=== PATIENT | female | born 1935 | race Caucasian/White ===

== ENCOUNTER → 2025-03-23 13:39 | Outpatient (REF) | payer OTHER, SELFPAY | LOC: HWRAD 13:39 | PROVIDERS: ATTENDING PHYSICIAN Internal Medicine | DX: R06.02 Shortness of breath (principal) | CPT/HCPCS: 71046 ==

== ENCOUNTER → 2025-06-16 09:39 | Outpatient (REF) | payer OTHER, SELFPAY | LOC: RAD 09:39 | DX: J18.9 Pneumonia, unspecified organism (principal); R05.3 Chronic cough | CPT/HCPCS: 71046 ==